=== PATIENT | male | born 1995 | race African-American/Black ===

== ENCOUNTER 2022-09-16 13:47 | Emergency (ER) | payer OTHER ==
[~2022-09-16] VITALS: Ht 190.5 cm; Wt 82.4 kg
[2022-09-16 13:47] VITALS: BP 130/71
[2022-09-16] MEDS ORDERED: CEPH500C PO (15:03)
== END 2022-09-16 15:17 | disposition home or self-care (01) ==
LOC: M ED 14:39
DX: S91.201A Unspecified open wound of right great toe with damage to nail, initial encounter (principal); X58.XXXA Exposure to other specified factors, initial encounter; Y92.89 Other specified places as the place of occurrence of the external cause; Y93.67 Activity, basketball; Y99.8 Other external cause status